=== PATIENT | male | born 2000 ===

== ENCOUNTER 2021-03-24 13:00 | Emergency (ER) ==
[~2021-03-24] VITALS: Ht 185.4 cm; Wt 97.3 kg
--- NOTE | 2021-03-24 19:19 | REPVR ---
PROCEDURE INFORMATION: Exam: CT Head Without Contrast Exam date and time: 03/24/2021 6:18 PM Age: 20 years old Clinical indication: Pain; Visual disturbance; Headache not specified; Additional info: Hot head/vision issues TECHNIQUE: Imaging protocol: Computed tomography of the head without contrast. Axial and coronal reformatted images were created and reviewed. Radiation optimization: All CT scans at this facility use at least one of these dose optimization techniques: automated exposure control; mA and/or kV adjustment per patient size (includes targeted exams where dose is matched to clinical indication); or iterative reconstruction. COMPARISON: No relevant prior studies available. FINDINGS: Brain: No CT evidence of acute intracranial hemorrhage or acute territorial infarction. No significant mass effect or midline shift. Basal cisterns patent. Cerebral ventricles: Normal in size and configuration. Paranasal sinuses: Minimal ethmoid mucosal thickening. Mastoid air cells: Grossly unremarkable. Bones/joints: No acute osseous abnormality. Soft tissues: Grossly unremarkable. IMPRESSION: 1. No CT evidence of acute intracranial pathology. 2. Additional findings, as above. Electronically signed by: Bret Paz On 03/24/2021 19:18:47 PM
== END 2021-03-24 22:23 | disposition left against medical advice (07) ==
LOC: M ED 13:00
DX: Z53.21 Procedure and treatment not carried out due to patient leaving prior to being seen by health care provider (principal)